=== PATIENT | female | born 1965 | race Caucasian/White ===

== ENCOUNTER → 2016-03-30 | Outpatient (CLI) | payer OTHER ==
[~2016-03-30] MED LIST: GADAVIST IV PRN; LEVO125T4 PO; LEVO25TA5 PO; VENL150C56 PO
--- NOTE | 2016-03-30 16:34 | MAMMOGRAPHY REPORT ---
BREAST MRI OF BOTH BREASTS : 03/30/2016 CLINICAL HISTORY: History of right breast cancer status post lumpectomy. History of bilateral silic one implants. COMPARISON: Comparison is made to exams dated: 03/10/2015 breast MRI, 02/17/2015 breast MRI - [facility], and 01/29/2008. Technique: The patient was placed prone in a dedicated breast imaging coil. Precontrast axial T1-we ighted, axial and sagittal T2-weighted fat saturation, axial and sagittal STIR, and axial T1-weighte d fat saturation images were obtained. After the administration of 7 mL of Gadavist IV contrast, se quential T1-weighted fat saturation images were obtained. Subtraction images were obtained of the d ynamic contrast enhanced sequences, and 3-D reformations were performed. The [employer] software was use d for kinetic analysis. Findings: There is mild background parenchymal enhancement bilaterally. Again noted are postsurgical changes in the right upper outer quadrant from prior lumpectomy as well as bilateral implant placement. The subpectoral silicone implants are intact bilaterally, without evidence of intracapsular or extracap sular rupture. There are no suspicious enhancing masses or areas of abnormal non-mass enhancement w ithin either breast. There is no evidence of axillary adenopathy. The chest wall structures are negative. Extramammary soft tissues are unremarkable. IMPRESSION: ACR BI-RADS CATEGORY 2: BENIGN No MRI evidence of malignancy in either breast. Recommend screening bilateral breast MRI in one year. Also recommend yearly screening mammograms, a s sometimes suspicious findings such as calcifications are only seen mammographically and not seen o n MRI. Terra Stacy M.D. /:03/30/2016 14:58:49 Folder [employer] Operator: apartment coordinator, [facility] letter sent: Normal 1/2 BI-RADS Code: ACR BI-RADS Category 2: Benign
== END | disposition home or self-care (01) ==
LOC: C.MRI 07:01
PROVIDERS: ATTEND Family Medicine
DX: Z85.3 Personal history of malignant neoplasm of breast (principal)

== ENCOUNTER → 2017-03-14 | Outpatient (CLI) | payer OTHER ==
[~2017-03-14] MED LIST changes: -GADAVIST IV PRN; -LEVO125T4 PO; +LEVO125T5 PO
--- NOTE | 2017-03-15 14:35 | MAMMOGRAPHY REPORT ---
BREAST MRI OF BOTH BREASTS : 03/14/2017 CLINICAL HISTORY: History of right breast cancer status post lumpectomy. History of bilateral silico ne implants. COMPARISON: Comparison is made to exams dated: 03/30/2016 breast MRI, 03/10/2015 breast MRI, 02/17/2015 breast MRI - [facility], and 01/29/2008. Technique: The patient was placed prone in a dedicated breast imaging coil. Precontrast axial T1-vargas ghted, axial and sagittal T2-weighted fat saturation, axial and sagittal STIR, and axial T1-weighted fat saturation images were obtained. After the administration of 7 mL of Gadavist IV contrast, seque ntial T1-weighted fat saturation images were obtained. Subtraction images were obtained of the dynam ic contrast enhanced sequences, and 3-D reformations were performed. The [employer] software was used for kinetic analysis. Findings: There is minimal background parenchymal enhancement bilaterally. Again noted are postsurgical change s in the right upper outer quadrant from prior lumpectomy as well as bilateral implant placement. Th e subpectoral silicone implants are intact bilaterally, without evidence of intracapsular or extracap sular rupture. There are no suspicious enhancing masses or areas of abnormal non-mass enhancement wi thin either breast. There is no evidence of axillary adenopathy. The chest wall structures are negative. Visualized ext ramammary soft tissues are grossly unremarkable. IMPRESSION: ACR BI-RADS CATEGORY 2: BENIGN No MRI evidence of malignancy in either breast. A 1 year screening breast MRI is recommended. Also recommend annual screening mammography in additio n to annual MRI, as sometimes suspicious findings such as calcifications are only seen mammographical ly and not seen on MRI. Terra Stacy M.D. ah/:03/15/2017 07:23:39 [employer]ator [employer] Director: legal services manager, [facility] letter sent: Normal 02/13 BI-RADS Code: ACR BI-RADS Category 2: Benign
== END | disposition home or self-care (01) ==
LOC: C.MRI 15:47
PROVIDERS: ATTEND Nurse Practitioner Family
DX: Z85.3 Personal history of malignant neoplasm of breast (principal); Z98.82 Breast implant status